=== PATIENT | male | born 1945 | race Caucasian/White ===

== ENCOUNTER 2017-11-15 16:01 | Inpatient (IN) | payer OTHER, MEDICAID ==
[~2017-11-15] VITALS: Ht 185.4 cm; Wt 79.4 kg
[2017-11-15 17:45] VITALS: BP 140/97
--- NOTE | 2017-11-15 17:45 | NUR ---
pt. adm. to rm.212-1.alert and oriented x3-4.a little agitated. made comfortable and given food.
[2017-11-15] MEDS ORDERED: GABA-534 PO (18:40)
[2017-11-15] MEDS ORDERED: LOSA100T15 PO (18:40)
[2017-11-15] MEDS ORDERED: AMLO10TA2 PO (18:40)
[2017-11-15] MEDS ORDERED: ASPI-1169 PO (18:40)
[2017-11-15] MEDS ORDERED: MAGNESIUM HYDROXIDE 30 ML UDC PO PRN (20:00)
[2017-11-15] MEDS ORDERED: ACETAMINOPHEN 325 MG TABLET PO PRN (20:00)
[2017-11-15 20:02] VITALS: BP 126/90
[2017-11-15] MEDS: GABAPENTIN 300 MG CAPSULE PO SCH (21:17)
[2017-11-15] MEDS ORDERED: LORAZEPAM 0.5 MG TABLET PO PRN (21:30)
--- NOTE | 2017-11-15 22:00 | NUR ---
ADMISSION NOTES ADMITTED THIS 72 Y/O MALE PATIENT DIRECT ADMIT FROM [facility] , PT IS ON 5150 HOLD , PER HOLD 5150 ,DTS,DTO AND PT. 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 REFUSED SKIN ASSESSMENT PER PT. MY SKIN IS INTACT , ENCOURAGED PT. VERBALIZED ANY FEELING CONCERN TO STAFF, ORIENT TO UNIT POLICY, WILL CONTINUE TO MONITOR FOR Q15 SAFETY AND BEHAVIOR.
[2017-11-16] MEDS: TEMAZEPAM 7.5 MG CAPSULE PO PRN ×2 (00:22→23:16)
--- NOTE | 2017-11-16 06:24 | NUR ---
GPS RN NOTES DURING SHIFT PT. DENIES SI/ HI , NO ACUTE DISTRESS NOTED /NO ANY DISCOMFORT NOTED , WILL CONTINUITY WITH CARE.
[2017-11-16 07:37] LABS: ALANINE AMINOTRANSFERASE 18 U/L (12-78); ALKALINE PHOSPHATASE 62 U/L (46-116); ASPARTATE AMINOTRANSFERASE 21 U/L (15-37); BILIRUBIN,TOTAL 0.5 mg/dL (0.2-1.0); CALCIUM, SERUM 8.7 mg/dL (8.5-10.1); CARBON DIOXIDE 31 mmol/L (21-32); CHLORIDE 105 mmol/L (98-107); CREATININE 1.2 mg/dL (0.6-1.3); GLUCOSE 119 mg/dL (74-106); POTASSIUM 2.9 mmol/L (3.5-5.1); SODIUM SERUM 142 mmol/L (136-145); TOTAL PROTEIN, SERUM 6.3 g/dL (6.4-8.2); UREA NITROGEN, BLOOD 23 mg/dL (7-18)
[2017-11-16 07:42] LABS: CHOLESTEROL 121 mg/dL (<200); HDL CHOLESTEROL 59 mg/dL (40-60); LDL 58 mg/dL (0-99); TRIGLYCERIDES 67 mg/dL (30-150)
[2017-11-16 08:00] VITALS: BP 123/92
[2017-11-16] MEDS ORDERED: POTASSIUM CHLORIDE 20 MEQ TAB.PRT.SR PO ONE (09:00)
[2017-11-16] MEDS: LOSARTAN POTASSIUM 50 MG TABLET PO SCH (09:22)
[2017-11-16] MEDS: ASPIRIN 81 MG TAB.CHEW PO SCH (09:22)
[2017-11-16] MEDS: AMLODIPINE BESYLATE 10 MG TABLET PO SCH (09:22)
[2017-11-16] MEDS: NICOTINE PATCH (21MG) 21 MG PATCH.TD24 TD SCH (09:23)
--- NOTE | 2017-11-16 12:23 | NUR ---
UR NOTE: AMY faxed clinical information to [facility] for authorization . Addendum: 11/16/17 at 1246 by SAUNDRA REYES Per Lindsay field case manager, [facility] has approved admission.
--- NOTE | 2017-11-16 13:53 | NUR ---
INITIAL DISCHARGE PLAN: Patient is homeless and refuses skilled nursing referrals. Patient stated once discharged he will be going to his friends house in [place]. Pt stated he would provide SW with address once discharged. SW will help form a safe and proper discharge in collaboration with MD.
[2017-11-16 16:28] VITALS: BP 118/78
[2017-11-16] MEDS: SERTRALINE HCL 50 MG TABLET PO SCH (17:12)
[2017-11-16] MEDS: ENSURE ENLIVE 237 ML LIQUID (VANILLA) PO SCH (17:27)
[2017-11-16 19:49] VITALS: BP 128/80
[2017-11-16] MEDS: GABAPENTIN 300 MG CAPSULE PO SCH (21:16)
[2017-11-16] MEDS ORDERED: ARIPIPRAZOLE 5 MG TABLET PO SCH (22:00)
[2017-11-17 07:24] LABS: CARBON DIOXIDE 31 mmol/L (21-32); CHLORIDE 106 mmol/L (98-107); GLUCOSE 103 mg/dL (74-106); POTASSIUM 3.5 mmol/L (3.5-5.1); SODIUM SERUM 143 mmol/L (136-145); UREA NITROGEN, BLOOD 22 mg/dL (7-18)
--- NOTE | 2017-11-17 08:56 | NUR ---
UR NOTE: AMY contacted [facility] [phone] and spoke with Luana who provided SW with Authorization #[id number] and stated that claim has been entered but it was still pending. Luana stated to AMY to call back on this present day at the end of the day to received end date for authorization.
[2017-11-17 09:11] VITALS: BP 116/83
[2017-11-17] MEDS: NICOTINE PATCH (21MG) 21 MG PATCH.TD24 TD SCH (09:16)
[2017-11-17] MEDS: ASPIRIN 81 MG TAB.CHEW PO SCH (09:17)
[2017-11-17] MEDS: LOSARTAN POTASSIUM 50 MG TABLET PO SCH (09:17)
[2017-11-17] MEDS: AMLODIPINE BESYLATE 10 MG TABLET PO SCH (09:17)
[2017-11-17] MEDS: ENSURE ENLIVE 237 ML LIQUID (VANILLA) PO SCH ×2 (09:17→16:24)
--- NOTE | 2017-11-17 10:30 | NUR ---
UR NOTE: Sw received phone call from [place] [facility] [employer] [facility] [employer] for authorization ex:[phone] requesting H&P and medication list.
--- NOTE | 2017-11-17 10:43 | NUR ---
UR NOTE: AMY faxed clinical review to [facility] [employer] [employer] for authorization ex:[phone].
[2017-11-17 15:56] VITALS: BP 127/93
[2017-11-17] MEDS: SERTRALINE HCL 50 MG TABLET PO SCH (16:24)
[2017-11-17] MEDS: MAG HYDROX/AL HYDROX/SIMETH 30 ML UDC PO PRN ×2 (17:53→22:15)
[2017-11-17 20:00] VITALS: BP 128/94
[2017-11-17] MEDS ORDERED: OLANZAPINE 2.5 MG TABLET PO SCH (22:00)
[2017-11-17] MEDS: GABAPENTIN 300 MG CAPSULE PO SCH (22:14)
[2017-11-17] MEDS: TEMAZEPAM 7.5 MG CAPSULE PO PRN (22:15)
[2017-11-18 08:00] VITALS: BP 103/70
--- NOTE | 2017-11-18 08:23 | NUR ---
UR NOTE: AMY faxed clinical review to [facility] plannerglobal commodity [employer] for authorization ex:[phone].
[2017-11-18] MEDS: NICOTINE PATCH (21MG) 21 MG PATCH.TD24 TD SCH (09:33)
[2017-11-18] MEDS: ASPIRIN 81 MG TAB.CHEW PO SCH (09:33)
[2017-11-18] MEDS: ENSURE ENLIVE 237 ML LIQUID (VANILLA) PO SCH ×2 (09:33→17:33)
[2017-11-18] MEDS: LOSARTAN POTASSIUM 50 MG TABLET PO SCH (09:35)
[2017-11-18] MEDS: AMLODIPINE BESYLATE 10 MG TABLET PO SCH (09:36)
--- NOTE | 2017-11-18 11:19 | NUR ---
UR NOTE: AMY received phone call from [facility] nurse outreach case managersurvey [employer] ex:[phone] to inquire on pts legal status and discharge date. AMY informed Heena that pt is currently on a 5250 hold and that tentative discharge is for Tuesday11/22/17.
--- NOTE | 2017-11-18 14:56 | NUR ---
UR NOTE: AMY contacted [facility] manager of [employer] ex:[phone] to request pt work information to do TARASOFF report.
[2017-11-18 16:00] VITALS: BP 139/71
[2017-11-18] MEDS: SERTRALINE HCL 50 MG TABLET PO SCH (17:28)
[2017-11-18] MEDS: SIMETHICONE 80 MG TAB.CHEW PO PRN (19:07)
[2017-11-18 20:00] VITALS: BP 111/77
[2017-11-18] MEDS: GABAPENTIN 300 MG CAPSULE PO SCH (21:56)
[2017-11-18] MEDS: TEMAZEPAM 7.5 MG CAPSULE PO PRN (21:56)
[2017-11-18] MEDS ORDERED: OLANZAPINE 2.5 MG TABLET PO SCH (22:00)
[2017-11-19 08:00] VITALS: BP 127/80
[2017-11-19] MEDS: NICOTINE PATCH (21MG) 21 MG PATCH.TD24 TD SCH (08:41)
[2017-11-19] MEDS: LOSARTAN POTASSIUM 50 MG TABLET PO SCH (08:41)
[2017-11-19] MEDS: ASPIRIN 81 MG TAB.CHEW PO SCH (08:41)
[2017-11-19] MEDS: AMLODIPINE BESYLATE 10 MG TABLET PO SCH (08:41)
[2017-11-19] MEDS: ENSURE ENLIVE 237 ML LIQUID (VANILLA) PO SCH ×2 (09:11→17:15)
[2017-11-19] MEDS ORDERED: POLYVINYL ALCOHOL 15 ML BOTTLE EACHEYE PRN (11:30)
[2017-11-19] MEDS: SIMETHICONE 80 MG TAB.CHEW PO PRN ×2 (14:57→22:10)
[2017-11-19 16:00] VITALS: BP 116/75
[2017-11-19] MEDS: SERTRALINE HCL 50 MG TABLET PO SCH (17:15)
[2017-11-19 20:00] VITALS: BP 130/81
[2017-11-19] MEDS: GABAPENTIN 300 MG CAPSULE PO SCH (22:10)
[2017-11-19] MEDS: TEMAZEPAM 7.5 MG CAPSULE PO PRN (22:10)
[2017-11-20 08:00] VITALS: BP 135/77
[2017-11-20] MEDS: ASPIRIN 81 MG TAB.CHEW PO SCH (09:02)
[2017-11-20] MEDS: AMLODIPINE BESYLATE 10 MG TABLET PO SCH (09:02)
[2017-11-20] MEDS: NICOTINE PATCH (21MG) 21 MG PATCH.TD24 TD SCH (09:03)
[2017-11-20] MEDS: ENSURE ENLIVE 237 ML LIQUID (VANILLA) PO SCH ×2 (09:03→16:27)
[2017-11-20] MEDS: LOSARTAN POTASSIUM 50 MG TABLET PO SCH (09:03)
[2017-11-20 16:00] VITALS: BP 111/68
[2017-11-20] MEDS: SERTRALINE HCL 50 MG TABLET PO SCH ×3 (16:27→20:23)
[2017-11-20] MEDS: SIMETHICONE 80 MG TAB.CHEW PO PRN (18:26)
--- NOTE | 2017-11-20 18:27 | NUR ---
GPS/RN PT REFUSED SERTRALINE FOR 1700. REQUESTED TO HAVE IT LATER. WILL ENDORSE TO THE [employer]IR CLIPPER POWER ACCORDINGLY
[2017-11-20 19:42] VITALS: BP 128/76
[2017-11-20] MEDS: GABAPENTIN 300 MG CAPSULE PO SCH (21:38)
[2017-11-20] MEDS: TEMAZEPAM 7.5 MG CAPSULE PO PRN (23:19)
--- NOTE | 2017-11-21 08:21 | NUR ---
TARASOFF REPORT: SW contacted [place] [employer] Address: [address] [place] [address] to make a TARASOFF report due to pt stating on psychiatric evaluation that he wanted to harm a person he worked with. Pt has refused to give identifying information and also refused to give SW the name of his previous employer. Office Rodriguez stated that since there was no identifying information she could not take report and suggested SW contact local [employer] to see if they will come to unit to investigate.
[2017-11-21 08:26] VITALS: BP 115/79
--- NOTE | 2017-11-21 08:30 | NUR ---
MARIS REPORT: SW contacted [facility] ([place], [place] Police Station Address: [address] [place] [address] unable to speak to an officer due to a high volume of calls, SW will try again at a later time.
--- NOTE | 2017-11-21 08:39 | NUR ---
UR NOTE: AMY faxed clinical review to [facility] [employer] [facility] [employer] for authorization ex:[phone].
[2017-11-21] MEDS: NICOTINE PATCH (21MG) 21 MG PATCH.TD24 TD SCH (09:00)
[2017-11-21] MEDS: ASPIRIN 81 MG TAB.CHEW PO SCH (09:28)
[2017-11-21] MEDS: LOSARTAN POTASSIUM 50 MG TABLET PO SCH (09:29)
[2017-11-21] MEDS: ENSURE ENLIVE 237 ML LIQUID (VANILLA) PO SCH ×2 (09:29→17:17)
[2017-11-21] MEDS: AMLODIPINE BESYLATE 10 MG TABLET PO SCH (09:30)
--- NOTE | 2017-11-21 09:37 | NUR ---
MARIS REPORT: AMY contacted [place] [employer] Address: [address] [place] [address] however, AMY was unable to make a report due to no answer.
--- NOTE | 2017-11-21 09:41 | NUR ---
MARIS REPORT: SW contacted [facility] Address: [address] [place] [address] and left voicemail for call back, SW will try again at a later time.
--- NOTE | 2017-11-21 09:48 | NUR ---
MARIS REPORT: AMY contacted [id number] and spoke with officer emmanuel #[phone] and provided information regarding pts HI statement during psychiatric evaluation. Officer #[id number] stated she would be sending an [employer] unit on this present day to [facility] to investigate HI ideation.
--- NOTE | 2017-11-21 11:00 | NUR ---
MARIS REPORT: Officer Dior #[id number] and Officer Daria #[id number] came to interview pt and informed SW that pt denied HI and did not have identifiable victim or workplace so they did not have enough evidence to make a report.
[2017-11-21 16:00] VITALS: BP 118/74
[2017-11-21 19:33] VITALS: BP 126/80
[2017-11-21] MEDS: GABAPENTIN 300 MG CAPSULE PO SCH (21:06)
[2017-11-21] MEDS: MAG HYDROX/AL HYDROX/SIMETH 30 ML UDC PO PRN (22:00)
--- NOTE | 2017-11-21 22:11 | NUR ---
GPS RN REQUEST : SIMETHICON 30 ML MEDS PULL OUT FROM OMNICELL PER PT. REQUEST , THEN PT. REFUSED TO TAKE SIMTHICOIN 30 ML
[2017-11-21] MEDS: TEMAZEPAM 7.5 MG CAPSULE PO PRN (23:43)
[2017-11-22 08:00] VITALS: BP 130/85
[2017-11-22] MEDS: NICOTINE PATCH (21MG) 21 MG PATCH.TD24 TD SCH (08:20)
[2017-11-22] MEDS: ASPIRIN 81 MG TAB.CHEW PO SCH (08:21)
[2017-11-22 08:22] VITALS: BP 130/85
[2017-11-22] MEDS: LOSARTAN POTASSIUM 50 MG TABLET PO SCH (08:22)
[2017-11-22] MEDS: AMLODIPINE BESYLATE 10 MG TABLET PO SCH (08:22)
[2017-11-22] MEDS: ENSURE ENLIVE 237 ML LIQUID (VANILLA) PO SCH (08:53)
--- NOTE | 2017-11-22 12:24 | NUR ---
GPS R AND D LAB TECHNICIAN NOTE: PT DISCHARGE TO [address] [facility] [address] VIA PUBLIC TRANSPORTATION TO HOME. PT IN STABLE CONDITION NO S/S DISTRESS NOTED ,VSS ,PT AMBULATORY SELF CARE, A/O X4 , DENIES S/I HI ,VISUAL AND AUDITORY HALLUCINATIONS, PT DENIES HURTING NO ONE . DR ESCALERA DC HOLD WITH PRESCRIPTION, ALL MEDICATIONS EXPLAIN TO PT . EXIT CARE DONE PRINTED ,SIGN AND GIVEN TO PT. PT REFUSED SKIN ASSESSMENT STATED" MY SKIN IS CLEAN" ALL BELONGINGS AND CONTRABAND GIVEN TO PT.
--- NOTE | 2017-11-22 13:31 | NUR ---
DISCHARGE NOTE: Pt was discharged at 12:30pm via public transportation home to [address] [facility] [address]. NO family to notify. Pts mood was happy with congruent affect, pt denied visual/auditory hallucinations and denied suicidal/homicidal ideations. Patient was provided referrals to address his alcohol use. Patient was referred to [facility]: [address] [place] [address] and will report for an Intake on Thursday November 23, 2017 before 5:00pm. Additional resources included [facility] [address] [place] [address] and [facility] [address] [place] [address] . For smoking cessation, patient was referred to the [employer] or [employer] 313-Ikcl-XHT. Pt was given a referral to [address] [address] and will schedule a follow up appointment with Retail Marketing Coordinator: Dr. Sergey Carlson Address: [address] [place] [address] . The multidisciplinary exitcare form was done, printed, signed, and given to the patient.
== END 2017-11-22 12:30 | disposition home or self-care (01) | DRG 885 ==
LOC: GPS 17:37
PROVIDERS: ADMIT Psychiatry & Neurology Psychosomatic Medicine; ATTEND Internal Medicine
DX: F33.3 Major depressive disorder, recurrent, severe with psychotic symptoms (principal); R45.851 Suicidal ideations; F23 Brief psychotic disorder; F41.9 Anxiety disorder, unspecified; I10 Essential (primary) hypertension; F17.210 Nicotine dependence, cigarettes, uncomplicated; G62.9 Polyneuropathy, unspecified; F19.90 Other psychoactive substance use, unspecified, uncomplicated
CPT/HCPCS: 36415; 80048-TC; 80053-TC; 80061-TC; 80305; 87081-TC